=== PATIENT | male | born 1945 | race Caucasian/White ===

== ENCOUNTER 2019-12-22 14:44 | Outpatient (CLI) | payer OTHER | END 2019-12-22 14:45 | disposition home or self-care (01) | LOC: COV 14:44 | PROVIDERS: ATTEND Student in an Organized Health Care Education/Training Program | DX: Z01.812 Encounter for preprocedural laboratory examination (principal); I25.10 Atherosclerotic heart disease of native coronary artery without angina pectoris; R00.1 Bradycardia, unspecified; I10 Essential (primary) hypertension; Z11.59 Encounter for screening for other viral diseases ==

== ENCOUNTER 2021-06-06 09:06 | Day surgery (SDC) | payer OTHER ==
[2021-06-06] MEDS ORDERED: LACTATED RINGERS 1,000 ML IV ONE (09:12)
--- NOTE | 2021-06-06 10:12 | ANESTHESIA ---
Pre-Anesthesia VS, & Labs - Diagnosis hx of colon polyps - Procedure colonoscopy Vital Signs: Temp Pulse Resp BP Pulse Ox 36.3 C L 107 H 18 98 06/06/21 09:12 06/06/21 09:12 06/06/21 09:12 06/06/21 09:12 Height: 5 ft 9 in Weight (kg): 74 kg Body Mass Index: 24.0 BMI Classification: Healthy weight - NPO >8 hours - Lab Results Current Lab Results: Laboratory Tests 06/06/21 09:30: POC Whole Bld Glucose 162 H Lab results reviewed: Yes Home Medications and Allergies Home Medications: Ambulatory Orders Aspirin [[place] Aspirin] 1 tab PO DAILY 06/05/21 Atorvastatin [Lipitor] 3 tab PO DAILY 06/05/21 Empagliflozin [Jardiance] 1 tab PO DAILY 06/05/21 Prazosin [Minipress] 2 cap PO BID 06/05/21 glipiZIDE [Glucotrol] 0.5 tab PO DAILY 06/05/21 metFORMIN [Glucophage] 2 tab PO BID 06/05/21 Amlodipine Besylate 10 mg PO DAILY 09/27/15 Benazepril HCl 80 mg PO BID 09/27/15 Aspirin [[place] Aspirin] 1 tab PO DAILY 06/05/21 Atorvastatin [Lipitor] 3 tab PO DAILY 06/05/21 Empagliflozin [Jardiance] 1 tab PO DAILY 06/05/21 Prazosin [Minipress] 2 cap PO BID 06/05/21 glipiZIDE [Glucotrol] 0.5 tab PO DAILY 06/05/21 metFORMIN [Glucophage] 2 tab PO BID 06/05/21 Allergies/Adverse Reactions: Allergies Allergy/AdvReac Type Severity Reaction Status Date / Time niacin Allergy Unknown Verified 06/05/21 11:51 hydralazine AdvReac Unknown Unverified 06/06/21 09:36 Anes History & Medical History - Anesthetic History Anesthesia Complications: reports: No previous complications Family history of Anesthesia Complications: Denies Family history of Malignant Hyperthermia: Denies - Medical History Cardiovascular: reports: Hypertension, High cholesterol, MA, Other (pacemaker in place) Pulmonary: reports: None Gastrointestinal: reports: GERD Urinary: reports: Frequency Musculoskeletal: reports: None Endocrine/Autoimmune: reports: Type 2 diabetes - Surgical History General: reports: Colonoscopy Cardiothoracic: reports: Pacemaker Exam General: Alert, Oriented x3, Cooperative, No acute distress Dental: WNL Mouth Openin Fingerbreadth Neck Mobility: Normal Mallampati classification: II Respiratory: Lungs clear, Normal breath sounds, No respiratory distress, No accessory muscle use Plan Anesthesia Type: General, Total IV Consent for Procedure(s) Verified and Reviewed: Yes Code Status: Attempt Resuscitation ASA classification: 3-Severe systemic disease Is this case an emergency?: No
[2021-06-06] MEDS ORDERED: PROPOFOL 500 MG/50 ML 500 MG/50 ML VIAL ONE (10:37)
[2021-06-06] MEDS ORDERED: LACTATED RINGERS 650 ML IV ONE (11:52)
[2021-06-06 12:10] VITALS: BP 144/59
--- NOTE | 2021-06-06 13:14 | ANESTHESIA POST OP EVALUATION ---
Anesthesia Post Eval - Post Anesthesia Eval Vitals: Last Vital Signs Temp 36.3 C L 06/06/21 12:08 Pulse 76 06/06/21 12:08 Resp 16 06/06/21 12:08 BP 144/59 H 06/06/21 12:08 Pulse Ox 100 06/06/21 12:08 CV Function Including HR & BP: Stable Pain Control: Satisfactory Nausea & Vomiting: Negative Mental Status: Baseline Respiratory Status: Airway Patent Hydration Status: Satisfactory Anesthesia Complications: None
== END 2021-06-06 09:07 | disposition home or self-care (01) ==
LOC: SDS 09:06
PROVIDERS: ATTEND Surgery
PROC: 0DBL8ZZ Excision of Transverse Colon, Via Natural or Artificial Opening Endoscopic (ICD-10-PCS; 2021-06-06)
PROC: 0DBN8ZZ Excision of Sigmoid Colon, Via Natural or Artificial Opening Endoscopic (ICD-10-PCS; 2021-06-06)
PROC: 0DBH8ZZ Excision of Cecum, Via Natural or Artificial Opening Endoscopic (ICD-10-PCS; 2021-06-06)
PROC: 0DBK8ZZ Excision of Ascending Colon, Via Natural or Artificial Opening Endoscopic (ICD-10-PCS; principal; 2021-06-06 10:30)
DX: Z12.11 Encounter for screening for malignant neoplasm of colon (principal); D12.3 Benign neoplasm of transverse colon; K63.5 Polyp of colon; E11.9 Type 2 diabetes mellitus without complications; Z79.84 Long term (current) use of oral hypoglycemic drugs; I25.10 Atherosclerotic heart disease of native coronary artery without angina pectoris; Z95.0 Presence of cardiac pacemaker
CPT/HCPCS: 45380; 45385; J7120

== ENCOUNTER 2021-12-07 19:47 | Outpatient (CLI) | payer OTHER | END 2021-12-07 19:48 | disposition home or self-care (01) | LOC: EMS 19:47 | DX: I46.9 Cardiac arrest, cause unspecified (principal) ==